=== PATIENT | female | born 1970 | race Caucasian/White ===

== ENCOUNTER 2021-08-31 17:24 | Outpatient (REF) | payer OTHER, SELFPAY ==
--- NOTE | ~2021-08-31 | XR_ITS ---
EXAMINATION: XR FOOT, RIGHT CLINICAL INFORMATION: Pain. COMPARISON: None TECHNIQUE: AP, lateral, and oblique views of the right foot. FINDINGS: Bony alignment and mineralization are normal. No fracture, dislocation or right ankle joint effusion is seen. Boehler's angle is normal. There are tiny posterior and plantar calcaneal spurs. There is mild bunion formation of the first metatarsal head. No soft tissue swelling, gas or foreign body is seen. XR/XR foot RT min 3V IMPRESSION: 1. No fracture, dislocation or right ankle joint effusion is seen. 2. There are tiny posterior and plantar right calcaneal spurs. 3. There is mild bunion formation of the right first metatarsal head.
== END 2021-08-31 17:25 | disposition home or self-care (01) ==
LOC: HO.XRAY 17:24
PROVIDERS: PCP Internal Medicine; Visit Provider Physician Assistant
DX: M79.671 Pain in right foot (principal)
CPT/HCPCS: 73630